=== PATIENT | male | born 1960 | race Caucasian/White ===

== ENCOUNTER 2017-01-29 09:30 | Inpatient (IN) | payer OTHER ==
[2017-01-29 10:03] VITALS: BMI 23.6
--- NOTE | 2017-01-29 11:58 | HP ---
COWS - Scale Resting Pulse: 0= RI 80 or Below Sweatin=Flushed/Facial Moisture Restless Observation: 1= Difficult to Sit Still Pupil Size: 1= Pupils >than Normal Bone or Joint Aches: 1= Mild Discomfort Runny Nose/ Eye Tearin= Runny Nose/Eyes GI Upset > 30mins: 2= Nausea/Diarrhea Tremor Observation: 2= Slight Tremor Visible Yawning Observation: 1= 1-2x During Session Anxiety or Irritability: 2=Irritable/Anxious Goose Flesh Skin: 0=Smooth Skin COWS Score: 14 Admission ROS S - HPI Chief Complaint: Withdrawal sx. Allergies/Adverse Reactions: Allergies Allergy/AdvReac Type Severity Reaction Status Date / Time No Known Allergies Allergy Verified 01/29/17 10:17 History of Present Illness: 56 y/o man with a long hx of drug dependence is admitted for detox. Pt. has been in previous detox, he was only drug free while incarcerated. Exam Limitations: No Limitations - Ebola screening Have you traveled outside of the country in the last 21 days: No Have you had contact with anyone from an Ebola affected area: No Have you been sick,other than usual withdrawal symptoms: No Do you have a fever: No - Review of Systems Constitutional: Diaphoresis EENT: reports: Nose Congestion Respiratory: reports: No Symptoms reported Cardiac: reports: No Symptoms Reported GI: reports: Nausea, Abdominal cramping : reports: No Symptoms Reported Musculoskeletal: reports: Joint Pain Integumentary: reports: Sweating Neuro: reports: Headache Endocrine: reports: No Symptoms Reported Hematology: reports: No Symptoms Reported Psychiatric: reports: No Sypmtoms Reported Other Systems: Reviewed and Negative Patient History - Patient Medical History Hx Anemia: No Hx Asthma: Yes Hx Chronic Obstructive Pulmonary Disease (COPD): No Hx Cancer: No Hx Cardiac Disorders: No Hx Congestive Heart Failure: No Hx Hypertension: Yes Hx Hypercholesterolemia: No Hx Pacemaker: No HX Cerebrovascular Accident: No Hx Seizures: No Hx Dementia: No Hx Diabetes: No Hx Gastrointestinal Disorders: Yes (acid reflux) Hx Liver Disease: No Hx Genitourinary Disorders: No Hx Sexually Transmitted Disorders: No Hx Renal Disease (ESRD): No Hx Thyroid Disease: No Hx Human Immunodeficiency Virus (HIV): No Hx Hepatitis C: Yes (no tx. needed) Hx Depression: Yes Hx Suicide Attempt: No Hx Bipolar Disorder: Yes (was on abilify,last taken a week ago) Hx Schizophrenia: No Other Medical History: PTSD - Patient Surgical History Past Surgical History: No Hx Neurologic Surgery: No Hx Cataract Extraction: No Hx Cardiac Surgery: No Hx Lung Surgery: No Hx Breast Surgery: No Hx Breast Biopsy: No Hx Abdominal Surgery: No Hx Appendectomy: No Hx Cholecystectomy: No Hx Genitourinary Surgery: No Hx Section: No Hx Orthopedic Surgery: No Anesthesia Reaction: No - PPD History Previous Implant?: Yes Documented Results: Negative w/proof Implanted On Prior R Admission?: Yes Date: 06/10/16 Results: 0 mm PPD to be Administered?: No - Smoking Cessation Smoking history: Current every day smoker Have you smoked in the past 12 months: Yes Aproximately how many cigarettes per day: 10 Hx Chewing Tobacco Use: No Initiated information on smoking cessation: Yes 'Breaking Loose' booklet given: 01/29/17 - Substance & Tx. History Hx Alcohol Use: No Hx Substance Use: Yes Substance Use Type: Heroin, Tranquilizers Hx Substance Use Treatment: Yes (Detox) - Substances Abused Heroin Route: Inhalation Frequency: Daily Amount used: 5-6 bags Age of first use: 15 Date of Last Use: 01/28/17 Xanax Route: Oral Frequency: 1-2 times per week Amount used: 1 mg. Age of first use: 56 Date of Last Use: 01/15/17 Family Disease History - Family Disease History Family Disease History: Heart Disease: Mother (HTN) Admission Physical Exam BHS - Vital Signs Vital Signs: Vital Signs - 24 hr 01/29/17 09:59 Temperature 97 F L Pulse Rate 74 Respiratory 20 Rate Blood Pressure 163/96 - Physical General Appearance: Yes: Tremorous, Anxious HEENTM: Yes: Nasal Congestion, Rhinorrhea Respiratory: Yes: Chest Non-Tender, Lungs Clear, Normal Breath Sounds Neck: Yes: Supple Breast: Yes: Breast Exam Deferred Cardiology: Yes: Regular Rhythm, Regular Rate, S1, S2 Abdominal: Yes: Normal Bowel Sounds, Non Tender, Flat, Soft Genitourinary: Yes: Within Normal Limits Back: Yes: Within Normal Limits Musculoskeletal: Yes: full range of Motion Extremities: Yes: Tremors Neurological: Yes: Fully Oriented, Alert Integumentary: Yes: Diaphoresis Lymphatic: Yes: Within Normal Limits - Diagnostic (1) Nicotine dependence Current Visit: Yes Status: Acute Qualifiers: Nicotine product type: cigarettes Substance use status: uncomplicated Qualified Code(s): F17.210 - Nicotine dependence, cigarettes, uncomplicated (2) Opioid dependence with withdrawal Current Visit: Yes Status: Acute (3) Asthma Current Visit: Yes Status: Chronic Qualifiers: Asthma severity: mild intermittent Asthma complication type: uncomplicated Qualified Code(s): J45.20 - Mild intermittent asthma, uncomplicated (4) Essential hypertension Current Visit: Yes Status: Chronic Comment: . Cleared for Admission [facility] - Detox or Rehab [facility] Level of Care: Medically Managed Detox Regimen/Protocol: Methadone [facility] Breath Alcohol Content Breath Alcohol Content: 0 Urine Drug Screen - Results Drug Screen Negative: No Urine Drug Screen Results: OPI-Opiates
[2017-01-29] MEDS ORDERED: MAG HYDROX/AL HYDROX/SIMETH 30 ML UNIT-DOSE CUP PO PRN (12:09)
[2017-01-29] MEDS ORDERED: NICOTINE POLACRILEX 2 MG GUM BUC PRN (12:09)
[2017-01-29] MEDS ORDERED: MAGNESIUM HYDROX 2400MG/30ML ORAL SUSPENSION 30 ML CUP PO PRN (12:09)
[2017-01-29] MEDS ORDERED: MENTHOL/PHENOL 1 EACH UD MM PRN (12:09)
[2017-01-29] MEDS ORDERED: P-EPHED 60MG/TRIPROLIDI 2.5MG TABLET PO PRN (12:09)
[2017-01-29] MEDS ORDERED: IBUPROFEN 400 MG TABLET (FP) PO PRN (12:09)
[2017-01-29] MEDS ORDERED: MAGNESIUM CITRATE 300 ML BOTTLE PO PRN (12:09)
[2017-01-29] MEDS ORDERED: diphenhydrAMINE HCL 50 MG CAPSULE PO PRN (12:09)
[2017-01-29] MEDS ORDERED: guaiFENesin/D-METHORPHAN HB 10 ML UNIT-DOSE CUPS PO PRN (12:09)
[2017-01-29] MEDS ORDERED: LOPERAMIDE HCL 2 MG CAPSULE PO PRN (12:09)
[2017-01-29] MEDS ORDERED: ACETAMINOPHEN 325 MG TABLET (FP) PO PRN (12:09)
[2017-01-29] MEDS ORDERED: hydrOXYzine PAMOATE 50 MG CAPSULE (FP) PO PRN (12:09)
[2017-01-29] MEDS ORDERED: ALBUTEROL SO4 6.7 GM HFA INHALER IH PRN (12:12)
[2017-01-29] MEDS ORDERED: METHADONE HCL 10 MG TABLET (FOR DETOX USE ONLY) PO ONE ×2 (12:39→23:00)
[2017-01-29] MEDS: LISINOPRIL 20 MG TABLET (FP) PO SCH (13:22)
[2017-01-29] MEDS: diazePAM 5 MG TABLET PO PRN ×2 (13:22→22:18)
[2017-01-29] MEDS: BUDESONIDE/FORMETEROL FUMARATE 80/4.5 mcg INHALER IH SCH ×2 (13:24→22:19)
[2017-01-29] MEDS: NICOTINE 21 MG/24 HOURS TOPICAL PATCH TD SCH (13:25)
[2017-01-29 17:27] LABS: URINE APPEARANCE CLEAR; URINE BILIRUBIN NEGATIVE (NEGATIVE); URINE BLOOD NEGATIVE (NEGATIVE); URINE COLOR YELLOW; URINE GLUCOSE (UA) NEGATIVE (NEGATIVE); URINE KETONE NEGATIVE (NEGATIVE); URINE LEUK ESTERASE NEGATIVE (NEGATIVE); URINE NITRITE NEGATIVE (NEGATIVE); URINE PROTEIN NEGATIVE (NEGATIVE)
--- NOTE | 2017-01-29 21:10 | EKG ---
Test Reason : Blood Pressure : / mmHG Vent. Rate : 061 BPM Atrial Rate : 061 BPM P-R Int : 160 ms QRS Dur : 088 ms QT Int : 388 ms P-R-T Axes : 078 017 033 degrees QTc Int : 390 ms NORMAL SINUS RHYTHM VOLTAGE CRITERIA FOR LEFT VENTRICULAR HYPERTROPHY ABNORMAL ECG NO PREVIOUS ECGS AVAILABLE CLINICAL CORRELATION IS RECOMMENDED Confirmed by JOSE MNAUEL DUNCAN MD ([id number]) on 01/29/2017 9:10:32 PM Referred By: Confirmed By:JOSE MANUEL DUNCAN MD
[2017-01-29] MEDS: THIAMINE HCL 100 MG TABLET (FP) PO SCH (22:18)
[2017-01-30] MEDS: diazePAM 5 MG TABLET PO PRN ×3 (05:37→17:25)
[2017-01-30] MEDS: cloNIDine HCL 0.1 MG TABLET PO PRN ×2 (07:54→17:25)
[2017-01-30 09:57] LABS: MCH 31.3 pg (25.7-33.7); MCHC 33.4 g/dl (32.0-35.9); MEAN CELL VOLUME 93.6 fl (80-96); MEAN PLT VOLUME 9.5 fl (7.5-11.1); PLATELET COUNT 159 K/MM3 (134-434); RDW 12.8 % (11.9-15.9); WHITE BLOOD COUNT 6.1 K/mm3 (4.0-10.0)
[2017-01-30] MEDS: PRENATAL VITAMINS W/ FOLIC ACID TABLET (FP) PO SCH (09:59)
[2017-01-30] MEDS ORDERED: METHADONE HCL 10 MG TABLET (FOR DETOX USE ONLY) PO ONE (10:00)
[2017-01-30] MEDS: BUDESONIDE/FORMETEROL FUMARATE 80/4.5 mcg INHALER IH SCH ×2 (10:00→22:25)
[2017-01-30] MEDS: LISINOPRIL 20 MG TABLET (FP) PO SCH (10:02)
[2017-01-30] MEDS: NICOTINE 21 MG/24 HOURS TOPICAL PATCH TD SCH (10:02)
[2017-01-30 10:51] LABS: ALBUMIN 3.6 g/dl (3.4-5.0); ALK PHOS 75 U/L (45-117); ANION GAP 5 (8-16); BILIRUBIN,TOTAL 0.5 mg/dL (0.2-1.0); CALCIUM 9.1 mg/dL (8.5-10.1); CO2 31 mmol/L (21-32); CREATININE 0.7 mg/dL (0.7-1.3); GLUCOSE,RANDOM 77 mg/dL (74-106); SGOT/AST 14 U/L (15-37); SGPT/ALT 17 U/L (12-78); TOT PROT 6.6 g/dl (6.4-8.2)
--- NOTE | 2017-01-30 11:37 | PN ---
S COWS - Scale Resting Pulse: 1= [place] 81-100 Sweatin= Chills/Flushing Restless Observation: 3= Extraneous Movement Pupil Size: 2= Moderately Dilated Bone or Joint Aches: 2= Severe Diffuse Aches Runny Nose/ Eye Tearin= Nasal Congestion GI Upset > 30mins: 2= Nausea/Diarrhea Tremor Observation of Outstretched Hands: 2= Slight Tremor Visible Yawning Observation: 2= >3x During Session Anxiety or Irritability: 2=Irritable/Anxious Goose Flesh Skin: 0=Smooth Skin COWS Score: 18 BHS Progress Note (SOAP) Subjective: BODY ACHE, HOT/COLD FLASHES,FATIGUE. Objective: 01/30/17 11:37 Vital Signs Temperature 97.8 F 01/30/17 09:35 Pulse Rate 93 H 01/30/17 09:35 Respiratory Rate 20 01/30/17 09:35 Blood Pressure 142/95 01/30/17 09:35 O2 Sat by Pulse Oximetry (%) Laboratory Last Values WBC 6.1 K/mm3 (4.0-10.0) 01/30/17 06:20 RBC 4.18 M/mm3 (4.00-5.60) 01/30/17 06:20 Hgb 13.1 GM/dL (11.7-16.9) 01/30/17 06:20 Hct 39.1 % (35.4-49) 01/30/17 06:20 MCV 93.6 fl (80-96) 01/30/17 06:20 MCH 31.3 pg (25.7-33.7) 01/30/17 06:20 MCHC 33.4 g/dl (32.0-35.9) 01/30/17 06:20 RDW 12.8 % (11.9-15.9) 01/30/17 06:20 Plt Count 159 K/MM3 (134-434) 01/30/17 06:20 MPV 9.5 fl (7.5-11.1) 01/30/17 06:20 Sodium 138 mmol/L (136-145) 01/30/17 06:20 Potassium 4.9 mmol/L (3.5-5.1) 01/30/17 06:20 Chloride 102 mmol/L (98-107) 01/30/17 06:20 Carbon Dioxide 31 mmol/L (21-32) 01/30/17 06:20 Anion Gap 5 (8-16) L 01/30/17 06:20 BUN 13 mg/dL (7-18) 01/30/17 06:20 Creatinine 0.7 mg/dL (0.7-1.3) 01/30/17 06:20 Creat Clearance w eGFR > 60 (>60) 01/30/17 06:20 Random Glucose 77 mg/dL (74-106) D 01/30/17 06:20 Calcium 9.1 mg/dL (8.5-10.1) 01/30/17 06:20 Total Bilirubin 0.5 mg/dL (0.2-1.0) 01/30/17 06:20 AST 14 U/L (15-37) L 01/30/17 06:20 ALT 17 U/L (12-78) 01/30/17 06:20 Alkaline Phosphatase 75 U/L (45-117) 01/30/17 06:20 Total Protein 6.6 g/dl (6.4-8.2) 01/30/17 06:20 Albumin 3.6 g/dl (3.4-5.0) 01/30/17 06:20 Urine Color Yellow 01/29/17 17:06 Urine Appearance Clear 01/29/17 17:06 Urine pH 6.0 (5.0-8.0) 01/29/17 17:06 Ur Specific [place] 1.020 (1.005-1.025) 01/29/17 17:06 Urine Protein Negative (NEGATIVE) 01/29/17 17:06 Urine Glucose (UA) Negative (NEGATIVE) 01/29/17 17:06 Urine Ketones Negative (NEGATIVE) 01/29/17 17:06 Urine Blood Negative (NEGATIVE) 01/29/17 17:06 Urine Nitrite Negative (NEGATIVE) 01/29/17 17:06 Urine Bilirubin Negative (NEGATIVE) 01/29/17 17:06 Urine Urobilinogen 2.0 mg/dL (0.2-1.0) 01/29/17 17:06 Ur Leukocyte Esterase Negative (NEGATIVE) 01/29/17 17:06 RPR Titer Nonreactive (NONREACTIVE) 01/30/17 06:20 Assessment: 01/30/17 11:37 WITHDRAWAL SX Plan: CONTINUE DETOX
[2017-01-30] MEDS: CYCLOBENZAPRINE HCL 10 MG TABLET (FP) PO SCH ×2 (14:26→22:25)
--- NOTE | 2017-01-30 15:43 | CONSULT ---
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 Substance Abuse History: Discussed in this session.Mr Fisher confirms this report as accurate. Smoking Cessation. Smoking history: Current every day smoker. Have you smoked in the past 12 months: Yes. Aproximately how many cigarettes per day: 10. Hx Chewing Tobacco Use: No. Initiated information on smoking cessation: Yes. 'Breaking Loose' booklet given: 01/29/17. - Substance & Tx. History. Hx Alcohol Use: No. Hx Substance Use: Yes. Substance Use Type: Heroin, Tranquilizers. Hx Substance Use Treatment: Yes (Detox). - Substances Abused. Heroin. Route: Inhalation. Frequency: Daily. Amount used: 5-6 bags. Age of first use: 15. Date of Last Use: 01/28/17. Xanax. Route: Oral. Frequency: 1-2 times per week. Amount used: 1 mg. Age of first use: 56. Date of Last Use: 01/15/17 Medical History: Hypertension,GERD,bronchial asthma and spinal stenosis. Psychiatric History: History as follows : first contact with Psychiatry was in 2009 (after his release from [facility]).Diagnosed with Bipolar Disorder and PTSD.Mr Fisher used to be on lamotrigine and other mood stabilizers.Known to [facility] OPD clinic.Non adherent to OPD care for several months and still not willing to resume psychotropic medications.No reported history of psychiatric hospitalizations or suicide attempts. Physical/Sexual Abuse/Trauma History: Patient denies. Additional Comment: Urine Drug Screen Results: OPI-Opiates.Noted. Mental Status Exam - Mental Status Exam Alert and Oriented to: Time, Place, Person Cognitive Function: Good Patient Appearance: Well Groomed Mood: Hopeful, Euthymic Affect: Appropriate, Normal Range Patient Behavior: Appropriate, Cooperative Speech Pattern: Clear Voice Loudness: Normal Thought Process: Goal Oriented Thought Disorder: Not Present Hallucinations: Denies Suicidal Ideation: Denies Homicidal Ideation: Denies Insight/Judgement: Poor Sleep: Well Appetite: Good Muscle strength/Tone: Normal Gait/Station: Normal Psychiatric Findings - Problem List ([place] 1, 2,3) (1) Nicotine dependence Current Visit: Yes Status: Acute Qualifiers: Nicotine product type: cigarettes Substance use status: uncomplicated Qualified Code(s): F17.210 - Nicotine dependence, cigarettes, uncomplicated (2) Opioid dependence with withdrawal Current Visit: Yes Status: Acute (3) Substance induced mood disorder Current Visit: Yes Status: Acute (4) Asthma Current Visit: Yes Status: Chronic Qualifiers: Asthma severity: mild intermittent Asthma complication type: uncomplicated Qualified Code(s): J45.20 - Mild intermittent asthma, uncomplicated (5) Essential hypertension Current Visit: Yes Status: Chronic Comment: . - Initial Treatment Plan Initial Treatment Plan: Psychoeducation.Detoxification.Patient declines psychotropic medications other than detox protocol.Observation.
[2017-01-30] MEDS: THIAMINE HCL 100 MG TABLET (FP) PO SCH (22:25)
[2017-01-31] MEDS: cloNIDine HCL 0.1 MG TABLET PO PRN (05:19)
[2017-01-31] MEDS: CYCLOBENZAPRINE HCL 10 MG TABLET (FP) PO SCH (06:56)
[2017-01-31 09:28] VITALS: BP 105/70; PULSE 99; TEMP 99
[2017-01-31] MEDS ORDERED: METHADONE HCL 5 MG TABLET (FOR DETOX USE ONLY) PO ONE (10:00)
[2017-01-31] MEDS: PRENATAL VITAMINS W/ FOLIC ACID TABLET (FP) PO SCH (10:44)
[2017-01-31] MEDS: NICOTINE 21 MG/24 HOURS TOPICAL PATCH TD SCH (10:44)
[2017-01-31] MEDS: LISINOPRIL 20 MG TABLET (FP) PO SCH (10:44)
[2017-01-31] MEDS: BUDESONIDE/FORMETEROL FUMARATE 80/4.5 mcg INHALER IH SCH (10:47)
--- NOTE | 2017-01-31 10:50 | PN ---
S COWS - Scale Resting Pulse: 1= ID 81-100 Sweatin= Chills/Flushing Restless Observation: 3= Extraneous Movement Pupil Size: 2= Moderately Dilated Bone or Joint Aches: 4=Acute Joint/Muscle Pain Runny Nose/ Eye Tearin= Nasal Congestion GI Upset > 30mins: 1= Stomach Cramp Tremor Observation of Outstretched Hands: 2= Slight Tremor Visible Yawning Observation: 1= 1-2x During Session Anxiety or Irritability: 2=Irritable/Anxious Goose Flesh Skin: 0=Smooth Skin COWS Score: 18 S Progress Note (SOAP) Subjective: ANXIETY,IRRITABILITY,SWEATS,INTERMITTENT SLEEP. PT STATES HE IS ON LISINOPRIL AND NORVASC 10 MG FOR HTN. Objective: 01/31/17 10:48 Vital Signs 01/31/17 01/31/17 01/31/17 06:34 07:41 09:27 Temperature 97.3 F L 99.0 F Pulse Rate 82 68 99 H Respiratory 18 18 Rate Blood Pressure 163/103 176/105 105/70 Laboratory Last Values WBC 6.1 K/mm3 (4.0-10.0) 01/30/17 06:20 RBC 4.18 M/mm3 (4.00-5.60) 01/30/17 06:20 Hgb 13.1 GM/dL (11.7-16.9) 01/30/17 06:20 Hct 39.1 % (35.4-49) 01/30/17 06:20 MCV 93.6 fl (80-96) 01/30/17 06:20 MCH 31.3 pg (25.7-33.7) 01/30/17 06:20 MCHC 33.4 g/dl (32.0-35.9) 01/30/17 06:20 RDW 12.8 % (11.9-15.9) 01/30/17 06:20 Plt Count 159 K/MM3 (134-434) 01/30/17 06:20 MPV 9.5 fl (7.5-11.1) 01/30/17 06:20 Sodium 138 mmol/L (136-145) 01/30/17 06:20 Potassium 4.9 mmol/L (3.5-5.1) 01/30/17 06:20 Chloride 102 mmol/L (98-107) 01/30/17 06:20 Carbon Dioxide 31 mmol/L (21-32) 01/30/17 06:20 Anion Gap 5 (8-16) L 01/30/17 06:20 BUN 13 mg/dL (7-18) 01/30/17 06:20 Creatinine 0.7 mg/dL (0.7-1.3) 01/30/17 06:20 Creat Clearance w eGFR > 60 (>60) 01/30/17 06:20 Random Glucose 77 mg/dL (74-106) D 01/30/17 06:20 Calcium 9.1 mg/dL (8.5-10.1) 01/30/17 06:20 Total Bilirubin 0.5 mg/dL (0.2-1.0) 01/30/17 06:20 AST 14 U/L (15-37) L 01/30/17 06:20 ALT 17 U/L (12-78) 01/30/17 06:20 Alkaline Phosphatase 75 U/L (45-117) 01/30/17 06:20 Total Protein 6.6 g/dl (6.4-8.2) 01/30/17 06:20 Albumin 3.6 g/dl (3.4-5.0) 01/30/17 06:20 Urine Color Yellow 01/29/17 17:06 Urine Appearance Clear 01/29/17 17:06 Urine pH 6.0 (5.0-8.0) 01/29/17 17:06 Ur Specific [place] 1.020 (1.005-1.025) 01/29/17 17:06 Urine Protein Negative (NEGATIVE) 01/29/17 17:06 Urine Glucose (UA) Negative (NEGATIVE) 01/29/17 17:06 Urine Ketones Negative (NEGATIVE) 01/29/17 17:06 Urine Blood Negative (NEGATIVE) 01/29/17 17:06 Urine Nitrite Negative (NEGATIVE) 01/29/17 17:06 Urine Bilirubin Negative (NEGATIVE) 01/29/17 17:06 Urine Urobilinogen 2.0 mg/dL (0.2-1.0) 01/29/17 17:06 Ur Leukocyte Esterase Negative (NEGATIVE) 01/29/17 17:06 RPR Titer Nonreactive (NONREACTIVE) 01/30/17 06:20 Assessment: 01/31/17 10:49 WITHDRAWAL SX Plan: CONTINUE DETOX
--- NOTE | 2017-01-31 11:40 | DS ---
[facility] Detox Discharge Summary Admission Date: 01/29/17 Discharge Date: 01/31/17 - History Present History: Opioid Dependence, Sedative Dependence Additional Comments: PT DECLINED CONTINUING WITH DETOX FOR PERSONAL REASONS UNKNOWN TO [employer]. ALERT O X 3. NAD. PT MAY FOLLOW UP WITH PCP FOR MEDICAL MANAGEMENT AT [facility]. Pertinent Past History: ASTHMA HTN GERD - Physical Exam Results Vital Signs: Vital Signs Temperature 99.0 F 01/31/17 09:27 Pulse Rate 99 H 01/31/17 09:27 Respiratory Rate 18 01/31/17 09:27 Blood Pressure 105/70 01/31/17 09:27 O2 Sat by Pulse Oximetry (%) Pertinent Admission Physical Exam Findings: WITHDRAWAL SX Laboratory Last Values WBC 6.1 K/mm3 (4.0-10.0) 01/30/17 06:20 RBC 4.18 M/mm3 (4.00-5.60) 01/30/17 06:20 Hgb 13.1 GM/dL (11.7-16.9) 01/30/17 06:20 Hct 39.1 % (35.4-49) 01/30/17 06:20 MCV 93.6 fl (80-96) 01/30/17 06:20 MCH 31.3 pg (25.7-33.7) 01/30/17 06:20 MCHC 33.4 g/dl (32.0-35.9) 01/30/17 06:20 RDW 12.8 % (11.9-15.9) 01/30/17 06:20 Plt Count 159 K/MM3 (134-434) 01/30/17 06:20 MPV 9.5 fl (7.5-11.1) 01/30/17 06:20 Sodium 138 mmol/L (136-145) 01/30/17 06:20 Potassium 4.9 mmol/L (3.5-5.1) 01/30/17 06:20 Chloride 102 mmol/L (98-107) 01/30/17 06:20 Carbon Dioxide 31 mmol/L (21-32) 01/30/17 06:20 Anion Gap 5 (8-16) L 01/30/17 06:20 BUN 13 mg/dL (7-18) 01/30/17 06:20 Creatinine 0.7 mg/dL (0.7-1.3) 01/30/17 06:20 Creat Clearance w eGFR > 60 (>60) 01/30/17 06:20 Random Glucose 77 mg/dL (74-106) D 01/30/17 06:20 Calcium 9.1 mg/dL (8.5-10.1) 01/30/17 06:20 Total Bilirubin 0.5 mg/dL (0.2-1.0) 01/30/17 06:20 AST 14 U/L (15-37) L 01/30/17 06:20 ALT 17 U/L (12-78) 01/30/17 06:20 Alkaline Phosphatase 75 U/L (45-117) 01/30/17 06:20 Total Protein 6.6 g/dl (6.4-8.2) 01/30/17 06:20 Albumin 3.6 g/dl (3.4-5.0) 01/30/17 06:20 Urine Color Yellow 01/29/17 17:06 Urine Appearance Clear 01/29/17 17:06 Urine pH 6.0 (5.0-8.0) 01/29/17 17:06 Ur Specific [place] 1.020 (1.005-1.025) 01/29/17 17:06 Urine Protein Negative (NEGATIVE) 01/29/17 17:06 Urine Glucose (UA) Negative (NEGATIVE) 01/29/17 17:06 Urine Ketones Negative (NEGATIVE) 01/29/17 17:06 Urine Blood Negative (NEGATIVE) 01/29/17 17:06 Urine Nitrite Negative (NEGATIVE) 01/29/17 17:06 Urine Bilirubin Negative (NEGATIVE) 01/29/17 17:06 Urine Urobilinogen 2.0 mg/dL (0.2-1.0) 01/29/17 17:06 Ur Leukocyte Esterase Negative (NEGATIVE) 01/29/17 17:06 RPR Titer Nonreactive (NONREACTIVE) 01/30/17 06:20 - Treatment Hospital Course: Discharged Condition Good (NAD) Patient has Accepted a Rehab Referral to: [facility] - Medication Discharge Medications: Ambulatory Orders Albuterol Sulfate Inhaler - [Ventolin HFA Inhaler -] 0 puff IH Q4HPO PRN #1 inhaler 06/06/15 Aripiprazole [Abilify -] 5 mg PO DAILY #30 tablet 06/06/15 Budesonide/Formeterol Fumarate [SYMBICORT 80/4.5mcg -] 1 puff IH BID 06/08/16 Lisinopril [Prinivil] 20 mg PO DAILY 01/29/17 Omeprazole 20 mg PO DAILY 01/29/17 - Diagnosis (1) Nicotine dependence Status: Acute Qualifiers: Nicotine product type: cigarettes Substance use status: in withdrawal Qualified Code(s): F17.213 - Nicotine dependence, cigarettes, with withdrawal (2) Opioid dependence with withdrawal Status: Acute (3) Asthma Status: Chronic Qualifiers: Asthma severity: mild intermittent Asthma complication type: uncomplicated Qualified Code(s): J45.20 - Mild intermittent asthma, uncomplicated (4) Essential hypertension Status: Chronic (5) GERD (gastroesophageal reflux disease) Status: Acute - AMA Did Patient Leave Against Medical Advice: Yes (AMA)
[2017-02-01] MEDS ORDERED: METHADONE HCL 5 MG TABLET (FOR DETOX USE ONLY) PO ONE (10:00)
[2017-02-02] MEDS ORDERED: METHADONE HCL 10 MG TABLET (FOR DETOX USE ONLY) PO ONE (10:00)
[2017-02-03] MEDS ORDERED: METHADONE HCL 5 MG TABLET (FOR DETOX USE ONLY) PO ONE (06:00)
== END 2017-01-31 11:45 | disposition left against medical advice (07) | DRG 770 ==
LOC: YASAS 09:30 → Y3N 11:12
PROVIDERS: ADMIT Internal Medicine; ATTEND Internal Medicine
PROC: HZ2ZZZZ Detoxification Services for Substance Abuse Treatment (ICD-10-PCS; principal; 2017-01-29)
DX: F11.23 Opioid dependence with withdrawal (principal); F17.213 Nicotine dependence, cigarettes, with withdrawal; F19.24 Other psychoactive substance dependence with psychoactive substance-induced mood disorder; I10 Essential (primary) hypertension; J45.20 Mild intermittent asthma, uncomplicated; K21.9 Gastro-esophageal reflux disease without esophagitis
CPT/HCPCS: 36415; 80053; 81003; 85027; 86593; 93005; 93010

== ENCOUNTER 2021-02-24 12:19 | Inpatient (IN) | payer OTHER ==
[2021-02-24 13:17] VITALS: BMI 20.2
[2021-02-24] MEDS ORDERED: MAG HYDROX/AL HYDROX/SIMETH 30 ML UNIT-DOSE CUP PO PRN (13:58)
[2021-02-24] MEDS ORDERED: IBUPROFEN 400 MG TABLET (FP) PO PRN (13:58)
[2021-02-24] MEDS ORDERED: NICOTINE POLACRILEX 2 MG GUM BUC PRN (13:58)
[2021-02-24] MEDS ORDERED: MAGNESIUM HYDROX 2400MG/30ML ORAL SUSPENSION 30 ML CUP PO PRN (13:58)
[2021-02-24] MEDS ORDERED: MENTHOL/PHENOL 1 EACH UD MM PRN (13:58)
[2021-02-24] MEDS ORDERED: BISMUTH SUBSALICYLATE 262 MG/15 ML BTL PO PRN (13:58)
[2021-02-24] MEDS ORDERED: hydrOXYzine PAMOATE 25 MG CAPSULE (FP) PO PRN (13:58)
[2021-02-24] MEDS ORDERED: MAGNESIUM CITRATE 300 ML BOTTLE PO PRN (13:58)
[2021-02-24] MEDS ORDERED: ACETAMINOPHEN 325 MG TABLET (FP) PO PRN ×2 (13:58)
[2021-02-24] MEDS ORDERED: ONDANSETRON *ODT* 4 MG TABLET SL PRN (13:58)
[2021-02-24] MEDS ORDERED: ALBUTEROL SO4 HFA INHALER IH PRN (13:59)
[2021-02-24] MEDS ORDERED: diazePAM 5 MG TABLET PO ONE (14:01)
[2021-02-24] MEDS ORDERED: cloNIDine HCL 0.1 MG TABLET PO PRN (14:01)
[2021-02-24] MEDS: BUDESONIDE/FORMETEROL FUMARATE 80/4.5 mcg INHALER IH SCH ×2 (15:21→22:14)
[2021-02-24] MEDS: diazePAM 5 MG TABLET PO SCH ×2 (17:31→22:14)
[2021-02-24] MEDS: diazePAM 5 MG TABLET PO PRN (19:54)
[2021-02-24] MEDS: THIAMINE HCL 100 MG TABLET (FP) PO SCH (22:14)
[2021-02-24] MEDS: MELATONIN 5 MG TABLETS PO SCH (22:14)
[2021-02-25] MEDS: diazePAM 5 MG TABLET PO SCH ×4 (05:36→23:37)
[2021-02-25] MEDS ORDERED: PRENATAL VITAMINS W/ FOLIC ACID TABLET (FP) PO SCH (10:00)
[2021-02-25] MEDS ORDERED: PANTOPRAZOLE 20 MG TABLET PO SCH (10:00)
[2021-02-25] MEDS ORDERED: LISINOPRIL 10 MG TABLET PO SCH (10:00)
[2021-02-25] MEDS: BUDESONIDE/FORMETEROL FUMARATE 80/4.5 mcg INHALER IH SCH ×2 (10:33→23:37)
[2021-02-25] MEDS: diazePAM 5 MG TABLET PO PRN (13:18)
[2021-02-25 15:24] LABS: CALCIUM 8.6 mg/dL (8.5-10.1)
[2021-02-25 15:25] LABS: ALBUMIN 2.9 g/dl (3.4-5.0); BLOOD UREA NITROGEN 21.4 mg/dL (7-18)
[2021-02-25 15:27] LABS: HEMATOCRIT 36.2 % (35.4-49); HEMOGLOBIN 12.5 GM/dL (11.7-16.9); MCH 35.4 pg (25.7-33.7); MCHC 34.6 g/dl (32.0-35.9); MEAN CELL VOLUME 102.3 fl (80-96); MEAN PLT VOLUME 9.1 fl (7.5-11.1); PLATELET COUNT 264 10^3/uL (134-434); RBC 3.54 M/mm3 (4.00-5.60); RDW 13.4 % (11.9-15.9); WHITE BLOOD COUNT 4.7 K/mm3 (4.0-10.0)
[2021-02-25 15:28] LABS: CREATININE 0.8 mg/dL (0.55-1.3)
[2021-02-25 15:29] LABS: BILIRUBIN,TOTAL 0.2 mg/dL (0.2-1); TOT PROT 6.7 g/dl (6.4-8.2)
[2021-02-25] MEDS: MELATONIN 5 MG TABLETS PO SCH (23:36)
[2021-02-25] MEDS: THIAMINE HCL 100 MG TABLET (FP) PO SCH (23:37)
[2021-02-26] MEDS ORDERED: diazePAM 5 MG TABLET PO SCH (06:00)
[2021-02-26 09:37] VITALS: BP 157/104; PULSE 83; TEMP 97.1
[2021-02-27] MEDS ORDERED: diazePAM 5 MG TABLET PO SCH (06:00)
[2021-02-28] MEDS ORDERED: diazePAM 5 MG TABLET PO ONE (06:00)
== END 2021-02-26 11:45 | disposition left against medical advice (07) | DRG 770 ==
LOC: YASAS 12:19 → Y6N 14:21 → Y3N 20:30
PROVIDERS: ADMIT Allergy & Immunology; ATTEND Allergy & Immunology
PROC: HZ2ZZZZ Detoxification Services for Substance Abuse Treatment (ICD-10-PCS; principal; 2021-02-24)
DX: F11.23 Opioid dependence with withdrawal (principal); F10.20 Alcohol dependence, uncomplicated; F12.10 Cannabis abuse, uncomplicated; F17.210 Nicotine dependence, cigarettes, uncomplicated; I10 Essential (primary) hypertension; J45.20 Mild intermittent asthma, uncomplicated; M54.5 Low back pain; G89.29 Other chronic pain; R63.4 Abnormal weight loss; Z68.20 Body mass index [BMI] 20.0-20.9, adult
CPT/HCPCS: 36415; 80053; 85027; 86780; C9803; J0735; U0003; U0005

== ENCOUNTER 2021-06-21 11:29 | Inpatient (IN) | payer OTHER ==
[2021-06-21 12:21] VITALS: BMI 21.2
[2021-06-21] MEDS ORDERED: MAGNESIUM CITRATE 300 ML BOTTLE PO PRN (12:54)
[2021-06-21] MEDS ORDERED: IBUPROFEN 400 MG TABLET (FP) PO PRN (12:54)
[2021-06-21] MEDS ORDERED: MAG HYDROX/AL HYDROX/SIMETH 30 ML UNIT-DOSE CUP PO PRN (12:54)
[2021-06-21] MEDS ORDERED: ACETAMINOPHEN 325 MG TABLET (FP) PO PRN (12:54)
[2021-06-21] MEDS ORDERED: MENTHOL/PHENOL 1 EACH UD MM PRN (12:54)
[2021-06-21] MEDS ORDERED: MAGNESIUM HYDROX 2400MG/30ML ORAL SUSPENSION 30 ML CUP PO PRN (12:54)
[2021-06-21] MEDS ORDERED: BISMUTH SUBSALICYLATE 524 MG/30 ML PO PRN (12:54)
[2021-06-21] MEDS: hydrOXYzine PAMOATE 25 MG CAPSULE (FP) PO SCH ×3 (14:10→22:34)
[2021-06-21] MEDS: THIAMINE HCL 100 MG TABLET (FP) PO SCH (22:34)
[2021-06-21] MEDS: MELATONIN 5 MG TABLETS PO SCH (22:34)
[2021-06-22] MEDS: hydrOXYzine PAMOATE 25 MG CAPSULE (FP) PO SCH ×5 (05:36→23:24)
[2021-06-22] MEDS: ONDANSETRON *ODT* 4 MG TABLET SL PRN ×2 (05:36→23:27)
[2021-06-22] MEDS ORDERED: methaDONE HCL 10 MG TABLET (FOR DETOX USE ONLY) PO ONE (09:15)
[2021-06-22] MEDS ORDERED: cloNIDine HCL 0.1 MG TABLET PO PRN (09:15)
[2021-06-22] MEDS ORDERED: diazePAM 5 MG TABLET PO PRN (09:15)
[2021-06-22] MEDS ORDERED: amLODIPine BESYLATE 10 MG TABLET (FP) PO SCH (10:00)
[2021-06-22] MEDS: LISINOPRIL 20 MG TABLET PO SCH (10:10)
[2021-06-22] MEDS: METHOCARBAMOL 500 MG TABLET PO PRN (10:10)
[2021-06-22] MEDS: PRENATAL VITAMINS W/ FOLIC ACID TABLET (FP) PO SCH (10:10)
[2021-06-22] MEDS: diazePAM 5 MG TABLET PO SCH ×3 (10:11→23:24)
[2021-06-22] MEDS: NIFEdipine E.R 60 MG TABLET PO SCH (10:35)
[2021-06-22 10:56] LABS: CALCIUM 9.2 mg/dL (8.5-10.1)
[2021-06-22 10:57] LABS: ALBUMIN 3.9 g/dl (3.4-5.0); BLOOD UREA NITROGEN 24.9 mg/dL (7-18)
[2021-06-22 10:58] LABS: CREATININE 1.1 mg/dL (0.55-1.3)
[2021-06-22 11:01] LABS: BILIRUBIN,TOTAL 1.2 mg/dL (0.2-1); TOT PROT 7.4 g/dl (6.4-8.2)
[2021-06-22 11:04] LABS: HEMOGLOBIN 12.8 GM/dL (11.7-16.9); MCH 34.3 pg (25.7-33.7); MCHC 34.5 g/dl (32.0-35.9); MEAN CELL VOLUME 99.6 fl (80-96); MEAN PLT VOLUME 8.8 fl (7.5-11.1); PLATELET COUNT 210 10^3/uL (134-434); RBC 3.72 M/mm3 (4.00-5.60); RDW 13.5 % (11.9-15.9); WHITE BLOOD COUNT 6.4 K/mm3 (4.0-10.0)
[2021-06-22] MEDS: MELATONIN 5 MG TABLETS PO SCH (23:24)
[2021-06-22] MEDS: THIAMINE HCL 100 MG TABLET (FP) PO SCH (23:24)
[2021-06-23] MEDS ORDERED: diazePAM 5 MG TABLET PO PRN (00:01)
[2021-06-23] MEDS: diazePAM 5 MG TABLET PO SCH ×4 (05:20→22:37)
[2021-06-23] MEDS: hydrOXYzine PAMOATE 25 MG CAPSULE (FP) PO SCH ×5 (05:20→23:04)
[2021-06-23] MEDS ORDERED: methaDONE HCL 10 MG TABLET (FOR DETOX USE ONLY) ONE (09:14)
[2021-06-23] MEDS: PRENATAL VITAMINS W/ FOLIC ACID TABLET (FP) PO SCH (10:24)
[2021-06-23] MEDS: LISINOPRIL 20 MG TABLET PO SCH (10:24)
[2021-06-23] MEDS: METHOCARBAMOL 500 MG TABLET PO PRN (10:24)
[2021-06-23] MEDS: NIFEdipine E.R 60 MG TABLET PO SCH (10:26)
[2021-06-23] MEDS: MELATONIN 5 MG TABLETS PO SCH (22:37)
[2021-06-23] MEDS: THIAMINE HCL 100 MG TABLET (FP) PO SCH (22:37)
[2021-06-24] MEDS ORDERED: diazePAM 5 MG TABLET PO PRN (00:01)
[2021-06-24] MEDS: diazePAM 5 MG TABLET PO SCH ×3 (05:24→22:42)
[2021-06-24] MEDS: hydrOXYzine PAMOATE 25 MG CAPSULE (FP) PO SCH ×5 (05:24→22:41)
[2021-06-24] MEDS ORDERED: methaDONE HCL 10 MG TABLET (FOR DETOX USE ONLY) PO ONE (10:00)
[2021-06-24] MEDS: NIFEdipine E.R 60 MG TABLET PO SCH (10:15)
[2021-06-24] MEDS: METHOCARBAMOL 500 MG TABLET PO PRN (10:15)
[2021-06-24] MEDS: LISINOPRIL 20 MG TABLET PO SCH (10:15)
[2021-06-24] MEDS: PRENATAL VITAMINS W/ FOLIC ACID TABLET (FP) PO SCH (10:15)
[2021-06-24] MEDS ORDERED: ALBUTEROL SO4 HFA INHALER IH PRN (10:58)
[2021-06-24] MEDS: BUDESONIDE/FORMETEROL FUMARATE 80/4.5 mcg INHALER IH SCH (12:56)
[2021-06-24] MEDS: MELATONIN 5 MG TABLETS PO SCH (22:40)
[2021-06-24] MEDS: THIAMINE HCL 100 MG TABLET (FP) PO SCH (22:41)
[2021-06-25] MEDS: BUDESONIDE/FORMETEROL FUMARATE 80/4.5 mcg INHALER IH SCH ×3 (00:47→22:21)
[2021-06-25] MEDS: diazePAM 5 MG TABLET PO SCH ×2 (05:32→17:26)
[2021-06-25] MEDS: hydrOXYzine PAMOATE 25 MG CAPSULE (FP) PO SCH ×5 (05:32→22:20)
[2021-06-25] MEDS ORDERED: methaDONE HCL 10 MG TABLET (FOR DETOX USE ONLY) ONE (09:37)
[2021-06-25] MEDS: LISINOPRIL 20 MG TABLET PO SCH (10:24)
[2021-06-25] MEDS: NIFEdipine E.R 60 MG TABLET PO SCH (10:24)
[2021-06-25] MEDS: PRENATAL VITAMINS W/ FOLIC ACID TABLET (FP) PO SCH (10:26)
[2021-06-25] MEDS: METHOCARBAMOL 500 MG TABLET PO PRN (10:28)
[2021-06-25] MEDS: THIAMINE HCL 100 MG TABLET (FP) PO SCH (22:20)
[2021-06-25] MEDS: MELATONIN 5 MG TABLETS PO SCH (22:21)
[2021-06-26] MEDS: ACETAMINOPHEN 325 MG TABLET (FP) PO PRN ×2 (01:28→17:47)
[2021-06-26] MEDS: hydrOXYzine PAMOATE 25 MG CAPSULE (FP) PO SCH ×5 (05:34→21:41)
[2021-06-26] MEDS ORDERED: diazePAM 5 MG TABLET PO ONE (06:00)
[2021-06-26] MEDS ORDERED: methaDONE HCL 10 MG TABLET (FOR DETOX USE ONLY) PO ONE (10:00)
[2021-06-26] MEDS: BUDESONIDE/FORMETEROL FUMARATE 80/4.5 mcg INHALER IH SCH ×2 (10:37→21:41)
[2021-06-26] MEDS: PRENATAL VITAMINS W/ FOLIC ACID TABLET (FP) PO SCH (10:37)
[2021-06-26] MEDS: LISINOPRIL 20 MG TABLET PO SCH (10:38)
[2021-06-26] MEDS: METHOCARBAMOL 500 MG TABLET PO PRN (10:38)
[2021-06-26] MEDS: NIFEdipine E.R 60 MG TABLET PO SCH (10:39)
[2021-06-26] MEDS: NICOTINE 10 MG CARTRIDGE (INHALER) IH PRN (14:55)
[2021-06-26] MEDS: MELATONIN 5 MG TABLETS PO SCH (21:40)
[2021-06-26] MEDS: THIAMINE HCL 100 MG TABLET (FP) PO SCH (21:41)
[2021-06-27] MEDS: hydrOXYzine PAMOATE 25 MG CAPSULE (FP) PO SCH (05:23)
[2021-06-27] MEDS: NICOTINE 10 MG CARTRIDGE (INHALER) IH PRN (05:45)
[2021-06-27 06:26] VITALS: BP 128/86; PULSE 83; TEMP 97.8
== END 2021-06-27 08:51 | disposition home or self-care (01) | DRG 773 ==
LOC: YASAS 11:29 → Y6N 13:49
PROVIDERS: ADMIT Allergy & Immunology; ATTEND Allergy & Immunology
PROC: HZ2ZZZZ Detoxification Services for Substance Abuse Treatment (ICD-10-PCS; principal; 2021-06-21)
DX: F10.230 Alcohol dependence with withdrawal, uncomplicated (principal); F11.23 Opioid dependence with withdrawal; F13.230 Sedative, hypnotic or anxiolytic dependence with withdrawal, uncomplicated; F17.210 Nicotine dependence, cigarettes, uncomplicated; F43.10 Post-traumatic stress disorder, unspecified; I10 Essential (primary) hypertension; J45.20 Mild intermittent asthma, uncomplicated; Z85.118 Personal history of other malignant neoplasm of bronchus and lung
CPT/HCPCS: 36415; 80053; 82962; 85027; 86780; C9803; J0735; Q0162; U0003; U0005

== ENCOUNTER 2021-10-05 10:01 | Inpatient (IN) | payer OTHER ==
[2021-10-05 10:51] VITALS: BMI 21.1
[2021-10-05] MEDS ORDERED: MAGNESIUM CITRATE 300 ML BOTTLE PO PRN (12:12)
[2021-10-05] MEDS ORDERED: MAG HYDROX/AL HYDROX/SIMETH 30 ML UNIT-DOSE CUP PO PRN (12:12)
[2021-10-05] MEDS ORDERED: BISMUTH SUBSALICYLATE 524 MG/30 ML PO PRN (12:12)
[2021-10-05] MEDS ORDERED: ONDANSETRON *ODT* 4 MG TABLET SL PRN (12:12)
[2021-10-05] MEDS ORDERED: BENZOCAINE/MENTHOL (CHLORASEPTIC ) LOZENGE MM PRN (12:12)
[2021-10-05] MEDS ORDERED: DICYCLOMINE HCL 10 MG CAPSULE PO PRN (12:12)
[2021-10-05] MEDS ORDERED: MAGNESIUM HYDROX 2400MG/30ML ORAL SUSPENSION 30 ML CUP PO PRN (12:12)
[2021-10-05] MEDS ORDERED: ACETAMINOPHEN 325 MG TABLET (FP) PO PRN (12:12)
[2021-10-05] MEDS ORDERED: LOPERAMIDE HCL 2 MG CAPSULE PO PRN (12:12)
[2021-10-05] MEDS ORDERED: NICOTINE 10 MG CARTRIDGE (INHALER) IH PRN (12:12)
[2021-10-05] MEDS: ALBUTEROL SO4 HFA INHALER IH PRN ×3 (13:00→22:23)
[2021-10-05] MEDS ORDERED: ALBUTEROL SO4 HFA INHALER IH ONE (13:06)
[2021-10-05] MEDS: methaDONE HCL 40 MG DISPERSABLE TABLET PO SCH (13:53)
[2021-10-05] MEDS: chlordiazePOXIDE HCL 25 MG CAPSULE PO PRN ×2 (13:56→17:42)
[2021-10-05] MEDS: hydrOXYzine PAMOATE 25 MG CAPSULE (FP) PO SCH ×3 (13:57→22:20)
[2021-10-05] MEDS: ACETAMINOPHEN 325 MG TABLET (FP) PO PRN ×2 (19:18→22:21)
[2021-10-05] MEDS: METHOCARBAMOL 500 MG TABLET PO PRN (19:18)
[2021-10-05] MEDS: guaiFENesin 200 MG/10 ML 10 ML UNIT-DOSE CUPS PO PRN (19:31)
[2021-10-05] MEDS: THIAMINE HCL 100 MG TABLET (FP) PO SCH (22:20)
[2021-10-05] MEDS: MELATONIN 5 MG TABLETS PO SCH (22:20)
[2021-10-05] MEDS: BUDESONIDE/FORMETEROL FUMARATE 80/4.5 mcg INHALER IH SCH (23:03)
[2021-10-06] MEDS: chlordiazePOXIDE HCL 25 MG CAPSULE PO SCH ×5 (00:31→22:47)
[2021-10-06] MEDS: IBUPROFEN 400 MG TABLET (FP) PO PRN ×2 (03:29→22:49)
[2021-10-06] MEDS: METHOCARBAMOL 500 MG TABLET PO PRN (03:30)
[2021-10-06] MEDS: guaiFENesin 200 MG/10 ML 10 ML UNIT-DOSE CUPS PO PRN ×5 (03:31→22:50)
[2021-10-06] MEDS: methaDONE HCL 40 MG DISPERSABLE TABLET PO SCH (05:08)
[2021-10-06] MEDS: hydrOXYzine PAMOATE 25 MG CAPSULE (FP) PO SCH ×5 (05:10→22:46)
[2021-10-06 10:26] LABS: HEMATOCRIT 39.1 % (35.4-49); HEMOGLOBIN 13.3 GM/dL (11.7-16.9); MCH 33.4 pg (25.7-33.7); MCHC 34.1 g/dl (32.0-35.9); MEAN CELL VOLUME 98.1 fl (80-96); MEAN PLT VOLUME 8.9 fl (7.5-11.1); PLATELET COUNT 184 10^3/uL (134-434); RBC 3.98 M/mm3 (4.00-5.60); RDW 13.8 % (11.9-15.9); WHITE BLOOD COUNT 6.9 K/mm3 (4.0-10.0)
[2021-10-06] MEDS: PRENATAL VITAMINS W/ FOLIC ACID TABLET (FP) PO SCH (10:36)
[2021-10-06] MEDS: LISINOPRIL 10 MG TABLET PO SCH (10:36)
[2021-10-06] MEDS: amLODIPine BESYLATE 10 MG TABLET (FP) PO SCH (10:36)
[2021-10-06 10:39] LABS: CALCIUM 9.2 mg/dL (8.5-10.1)
[2021-10-06] MEDS: BUDESONIDE/FORMETEROL FUMARATE 80/4.5 mcg INHALER IH SCH ×2 (10:39→23:01)
[2021-10-06] MEDS: ALBUTEROL SO4 HFA INHALER IH PRN (10:39)
[2021-10-06 10:40] LABS: ALBUMIN 3.7 g/dl (3.4-5.0); BLOOD UREA NITROGEN 21.8 mg/dL (7-18)
[2021-10-06 10:44] LABS: TOT PROT 8.1 g/dl (6.4-8.2)
[2021-10-06 10:45] LABS: BILIRUBIN,TOTAL 0.4 mg/dL (0.2-1)
[2021-10-06] MEDS: THIAMINE HCL 100 MG TABLET (FP) PO SCH (22:46)
[2021-10-06] MEDS: MELATONIN 5 MG TABLETS PO SCH (22:46)
[2021-10-07] MEDS: methaDONE HCL 40 MG DISPERSABLE TABLET PO SCH (05:59)
[2021-10-07] MEDS: chlordiazePOXIDE HCL 25 MG CAPSULE PO SCH ×4 (05:59→22:38)
[2021-10-07] MEDS: hydrOXYzine PAMOATE 25 MG CAPSULE (FP) PO SCH ×5 (05:59→22:38)
[2021-10-07] MEDS: guaiFENesin 200 MG/10 ML 10 ML UNIT-DOSE CUPS PO PRN ×2 (08:38→15:47)
[2021-10-07 10:07] LABS: SARS-CoV-2 NAA Not Detected (Not Detected)
[2021-10-07] MEDS: PRENATAL VITAMINS W/ FOLIC ACID TABLET (FP) PO SCH (10:40)
[2021-10-07] MEDS: amLODIPine BESYLATE 10 MG TABLET (FP) PO SCH (10:42)
[2021-10-07] MEDS: LISINOPRIL 10 MG TABLET PO SCH (10:42)
[2021-10-07] MEDS: METHOCARBAMOL 500 MG TABLET PO PRN ×2 (10:44→22:39)
[2021-10-07] MEDS: BUDESONIDE/FORMETEROL FUMARATE 80/4.5 mcg INHALER IH SCH ×2 (12:16→22:38)
[2021-10-07] MEDS: IBUPROFEN 400 MG TABLET (FP) PO PRN (17:45)
[2021-10-07] MEDS: THIAMINE HCL 100 MG TABLET (FP) PO SCH (22:38)
[2021-10-07] MEDS: MELATONIN 5 MG TABLETS PO SCH (22:38)
[2021-10-08] MEDS ORDERED: chlordiazePOXIDE HCL 10 MG CAPSULE PO PRN
[2021-10-08] MEDS: hydrOXYzine PAMOATE 25 MG CAPSULE (FP) PO SCH ×5 (05:12→22:21)
[2021-10-08] MEDS: methaDONE HCL 40 MG DISPERSABLE TABLET PO SCH (05:12)
[2021-10-08] MEDS: chlordiazePOXIDE HCL 10 MG CAPSULE PO SCH ×4 (05:12→22:22)
[2021-10-08] MEDS: guaiFENesin 200 MG/10 ML 10 ML UNIT-DOSE CUPS PO PRN (10:22)
[2021-10-08] MEDS: PRENATAL VITAMINS W/ FOLIC ACID TABLET (FP) PO SCH (10:24)
[2021-10-08] MEDS: amLODIPine BESYLATE 10 MG TABLET (FP) PO SCH (10:24)
[2021-10-08] MEDS: LISINOPRIL 10 MG TABLET PO SCH (10:24)
[2021-10-08] MEDS: ACETAMINOPHEN 325 MG TABLET (FP) PO PRN (10:24)
[2021-10-08] MEDS: BUDESONIDE/FORMETEROL FUMARATE 80/4.5 mcg INHALER IH SCH ×2 (11:26→22:44)
[2021-10-08] MEDS: ALBUTEROL SO4 HFA INHALER IH PRN ×3 (11:27→22:21)
[2021-10-08] MEDS: METHOCARBAMOL 500 MG TABLET PO PRN ×2 (17:32→22:20)
[2021-10-08] MEDS: IBUPROFEN 400 MG TABLET (FP) PO PRN (22:20)
[2021-10-08] MEDS: MELATONIN 5 MG TABLETS PO SCH (22:21)
[2021-10-08] MEDS: THIAMINE HCL 100 MG TABLET (FP) PO SCH (22:21)
[2021-10-09] MEDS ORDERED: chlordiazePOXIDE HCL 10 MG CAPSULE PO SCH (05:00)
[2021-10-09] MEDS: ACETAMINOPHEN 325 MG TABLET (FP) PO PRN (05:49)
[2021-10-09] MEDS: methaDONE HCL 40 MG DISPERSABLE TABLET PO SCH (05:49)
[2021-10-09] MEDS: hydrOXYzine PAMOATE 25 MG CAPSULE (FP) PO SCH ×2 (07:11→10:14)
[2021-10-09] MEDS: amLODIPine BESYLATE 10 MG TABLET (FP) PO SCH (10:14)
[2021-10-09] MEDS: PRENATAL VITAMINS W/ FOLIC ACID TABLET (FP) PO SCH (10:14)
[2021-10-09] MEDS: LISINOPRIL 10 MG TABLET PO SCH (10:14)
[2021-10-09] MEDS: BUDESONIDE/FORMETEROL FUMARATE 80/4.5 mcg INHALER IH SCH (10:14)
[2021-10-09 13:38] VITALS: BP 138/88; PULSE 64; TEMP 97.3
[2021-10-10] MEDS ORDERED: chlordiazePOXIDE HCL 10 MG CAPSULE PO ONE (05:00)
== END 2021-10-09 09:51 | disposition home or self-care (01) | DRG 773 ==
LOC: YASAS 10:01 → Y3N 13:01
PROVIDERS: ADMIT Allergy & Immunology; ATTEND Allergy & Immunology
PROC: HZ2ZZZZ Detoxification Services for Substance Abuse Treatment (ICD-10-PCS; principal; 2021-10-05)
DX: F11.23 Opioid dependence with withdrawal (principal); F13.230 Sedative, hypnotic or anxiolytic dependence with withdrawal, uncomplicated; F13.20 Sedative, hypnotic or anxiolytic dependence, uncomplicated; F17.210 Nicotine dependence, cigarettes, uncomplicated; F43.10 Post-traumatic stress disorder, unspecified; I10 Essential (primary) hypertension; J45.20 Mild intermittent asthma, uncomplicated; C34.90 Malignant neoplasm of unspecified part of unspecified bronchus or lung; M48.061 Spinal stenosis, lumbar region without neurogenic claudication; M54.50 Low back pain, unspecified; G89.29 Other chronic pain
CPT/HCPCS: 36415; 80053; 85027; 86780; 87811; C9803-CS; U0003; U0005